=== PATIENT | female | born 1940 | race Caucasian/White ===

== ENCOUNTER 2019-09-01 07:33 | Day surgery (SDC) | payer MEDICARE ==
[~2019-09-01] VITALS: Ht 154.9 cm; Wt 45.2 kg
[~2019-09-01 07:33] MED LIST: ALBU90OI INH; FOLI400 PO; MAGNESIUM250 MG PO; OCUVITE ADULT1 EACH PO; SPIRIVA RESPIMAT4 GM INH; VITAMIN B-121000 MC3 PO; VITAMIN D34000 UNIT PO
== END 2019-09-01 10:05 | disposition home or self-care (01) ==
LOC: ORSCSDS 07:33
PROVIDERS: Internal Medicine Gastroenterology
PROC: 0DBH8ZX Excision of Cecum, Via Natural or Artificial Opening Endoscopic, Diagnostic (ICD-10-PCS; principal; 2019-09-01 09:00)
PROC: 0DBK8ZX Excision of Ascending Colon, Via Natural or Artificial Opening Endoscopic, Diagnostic (ICD-10-PCS; principal; 2019-09-01 09:00)
DX: Z12.11 Encounter for screening for malignant neoplasm of colon (principal); D12.0 Benign neoplasm of cecum; D12.2 Benign neoplasm of ascending colon; K57.30 Diverticulosis of large intestine without perforation or abscess without bleeding; Z86.010 Personal history of colon polyps; F17.210 Nicotine dependence, cigarettes, uncomplicated
CPT/HCPCS: 88305; J2704; J7120